=== PATIENT | male | born 2005 | race Two or more races ===

== ENCOUNTER 2024-10-06 06:19 | Inpatient (IN) | payer SELFPAY ==
[2024-10-06] VITALS (142 sets, daily range): BP systolic 97–129; BP diastolic 52–94; PULSE 64–113; RESP 0–45; TEMP 36.8; O2SAT 91–100
--- NOTE | 2024-10-06 06:36 | ECG_ITS ---
[employer] Test Date: 2024-10-06 Pat Name: James Alves Department: Room: Gender: Male Rn Transfer: : 2005 Requested By: Adan Zapata Order Number: [id number] Bam MD: ALFIE KEY Measurements Intervals [place] Rate: 131 P: 61 MN: 108 QRS: 53 QRSD: 86 T: 199 QT: 262 QTc: 387 Interpretive Statements SINUS TACHYCARDIA WITH SHORT MN INTERVAL ST DEVIATION AND MODERATE T-WAVE ABNORMALITY, CONSIDER ANTEROLATERAL ISCHEMIA [-0.1+ mV T-WAVE IN V3-V6] ST DEVIATION AND MODERATE T-WAVE ABNORMALITY, CONSIDER INFERIOR ISCHEMIA [-0.1+ mV T-WAVE IN II/aVF] No previous ECG available for comparison Electronically Signed On 10-06-2024 16:15:00 BILLET CHECKER by ALFIE KEY [id number]
--- NOTE | 2024-10-06 06:38 | ED_ITS ---
HPI - Seizure 2 General: Chief Complaint: Seizure Stated Complaint: seizure Time Seen by Provider: 10/06/24 06:20 History of Present Illness: HPI Narrative: 19-year-old male brought in by EMS repor amador status epilepticus. He has a known history of seizures in the past. He is on valproic acid. Patient arrives intubated. The head reported status in the feels initially given him a total of 25 mg of Versed uncertain from the report if this was in a single dose or titrated I suspect titrated. He is also given 100 mg of fentanyl 30 of etomidate and 150 mg of rocuronium. We do not have any old records available. On arrival here he had gotten the rocuronium about 20 to 25 minutes prior to arrival he is intubated. The ET tube is in the right mainstem and was adjusted appropriately. He is mildly tachycardic. 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 Patient has blood smeared across the abdomen reportedly from dislodged IVs he has IO attempts at the distal anterior femur bilaterally Related Data Previous Rx's Medication Instructions Recorded amoxicillin 875 mg-potassium 1 tab PO BID #14 tabs 10/07/24 clavulanate 125 mg tablet diazepam 10 mg/spray (0.1 mL) See Rx Instructions .Route 10/07/24 nasal spray (Valtoco) .COMPLEX #2 sprays divalproex 500 mg tablet,extended 1,000 mg (2 x 500 mg) PO QAM #30 10/07/24 release 24 hr tabs divalproex 500 mg tablet,extended 1,500 mg (3 x 500 mg) PO BEDTIME 10/07/24 release 24 hr #30 tabs levetiracetam 750 mg tablet 750 mg PO BID #60 tabs 10/07/24 (Keppra) Allergies Allergy/AdvReac Type Severity Reaction Status Date / Time No Known Drug Allergies Allergy Unknown Verified 10/06/24 14:54 Review of Systems 2 General: Reports: ROS unobtainable due to endotracheal tube and ROS unobtainable due to medical condition Physical Exam 2 HENMT: COMMON NORMALS: normocephalic, atraumatic and hearing grossly normal bilaterally HEAD & SCALP: normocephalic and atraumatic Resp: COMMON NORMALS: clear to auscultation bilaterally AUSCULTATION: clear to auscultation bilaterally Cardio: COMMON NORMALS: regular rhythm and No murmurs present (Cardio) R ATE: tachycardic RHYTHM: regular rhythm GI: COMMON NORMALS: Soft to palpation and No hepatosplenomegaly present A USCULTATION: Yes normoactive bowel sounds PALPATION: Yes Soft to palpation, No Tenderness to palpation present (GI), No Guarding due to palpation present (GI) and Yes No hepatosplenomegaly present Extremity: COMMON NORMALS: normal to inspection, capillary refill normal, no clubbing, cyanosis or edema, no calf tenderness and no pedal edema Skin: COMMON NORMALS: no rashes or lesions noted GENERAL SKIN EXAM: no rashes or lesions noted Course 2 Vital Signs: Vital signs: Vital Signs Temperature 97.5 F L 10/07/24 12:00 Pulse Rate 68 10/07/24 19:45 Respiratory Rate 24 H 10/07/24 19:45 Blood Pressure 145/82 10/07/24 14:00 Pulse Oximetry 95 10/07/24 19:45 Oxygen Delivery Me thod Room Air 10/07/24 19:45 Oxygen Flow Rate 5 10/06/24 08:51 Fraction of Inspir ed Oxygen 50 10/06/24 08:34 MDM - Seizure MDM Narrative Medical decision making narrative: Patient noted for times rocuronium wore off and patient began to show intentional activity. His propofol was titrated down is placed on weaning settings. Were able to successfully extubate him. Discussed with neurology as well as with hospitalist will admit to the ICU patient is still significantly postictal and having some of the residual effects from the paralytics and sedation. When first extubated he was a little bit combative. He is given his dose of Ativan. No further seizure activity. Admission orders written Lab Data 10/07/24 04:28 10/07/24 04:28 Labs: Radiology Impressions Head CT 10/06/24 06:45 IMPRESSION: Negative head CT. Cervical Spine CT 10/06/24 07:14 IMPRESSION: Normal cervical spine. Chest X-Ray 10/06/24 09:02 IMPRESSION: 1. Normal chest. Laboratory Results WBC 21.49 10^3/uL (4.5-13.0) H 10/06/24 06:35 RBC 5.17 10^6/uL (3.85-5.65) 10/06/24 06:35 Hgb 14.10 g/dL (13.2-15.6) 10/06/24 06:35 Hct 44.0 % (37-53) 10/06/24 06:35 MCV 85.1 fl (82-101) 10/06/24 06:35 MCH 27.3 pg (27-33) 10/06/24 06:35 MCHC 32.0 g/dL (30-55) 10/06/24 06:35 RDW 13.3 % (12.1-15.1) 10/06/24 06:35 Plt Count 432 10^3/cmm (157-399) H 10/06/24 06:35 MPV 10.4 fL (7.4-10.4) 10/06/24 06:35 Neut % (Auto) 79.1 % 10/06/24 06:35 Lymph % (Auto) 7.3 % 10/06/24 06:35 [place] % (Auto) 10.1 % 10/06/24 06:35 Eos % (Auto) 0.1 % 10/06/24 06:35 Baso % (Auto) 0.6 % 10/06/24 06:35 Neut # (Auto) 16.98 10^3/uL (1.8-8.0) H 10/06/24 06:35 Lymph # (Auto) 1.6 10^3/uL (1.5-6.5) 10/06/24 06:35 [place] # (Auto) 2.2 10^3/uL (0.2-0.9) H 10/06/24 06:35 Eos # (Auto) 0.0 10^3/uL (0.0-0.8) 10/06/24 06:35 Baso # (Auto) 0.1 10^3/uL (0.0-0.1) 10/06/24 06:35 Nucleated RBC % (auto) 0 % 10/06/24 06:35 Nucleated RBCs # 0.0 /100WBC 10/06/24 06:35 Specimen Type Arterial 10/06/24 08:14 Sample Site Radial, left 10/06/24 08:14 ABG pH 7.43 (7.35-7.45) 10/06/24 08:14 ABG pCO2 41.6 mmHg (35-45) 10/06/24 08:14 ABG pO2 202.0 mmHg (80.0-100.0) H 10/06/24 08:14 ABG PO2/FiO2 Ratio 202 10/06/24 08:14 ABG HCO3 27.4 mmol/L (22-26) H 10/06/24 08:14 ABG O2 Saturation > 99.1 10/06/24 08:14 ABG Base Excess 2.7 mmol/L (-2.0-2.0) H 10/06/24 08:14 Jono Test Pos 10/06/24 08:14 A-a O2 Gradient 58.7 mmHg (5-10) H 10/06/24 08:14 Hematocrit 42.4 % (42-52) 10/06/24 08:14 Hgb O2 Saturation 97.9 % (95-100) 10/06/24 08:14 Carboxyhemoglobin 0.5 %THgb (0.4-20.1) 10/06/24 08:14 Methemoglobin 1.3 % (0.4-1.5) 10/06/24 08:14 Total Hemoglobin 13.8 g/dL (14-18) L 10/06/24 08:14 Sodium 147.0 mmol/L (131-143) H 10/06/24 08:14 Potassium 3.1 mmol/L (3.5-5.0) L 10/06/24 08:14 Glucose 77.0 mg/dL (70-115) 10/06/24 08:14 Ionized Calcium 1.2 mmol/L (1.1-1.4) 10/06/24 08:14 O2 Delivery Device Vent 10/06/24 08:14 FiO2 100.0 % 10/06/24 08:14 Tidal Volume 0.50 10/06/24 08:14 PEEP 6.0 cmH20 10/06/24 08:14 Ship Washer ID [place] 10/06/24 08:14 Sodium 142 mmol/L (136-145) 10/06/24 06:35 Potassium 3.4 mmol/L (3.5-5.1) L 10/06/24 06:35 Chloride 102 mmol/L (98-107) 10/06/24 06:35 Carbon Dioxide 21 mmol/L (22-29) L 10/06/24 06:35 Anion Gap 22.4 (5-19) H 10/06/24 06:35 BUN 16 mg/dL (6-20) 10/06/24 06:35 Creatinine 1.4 mg/dL (0.7-1.2) H 10/06/24 06:35 GFR Calculation 64.6 mL/min (90-130) L 10/06/24 06:35 Glucose 85 mg/dL (65-115) 10/06/24 06:35 Calculated Osmolality 294 mOsm/kg (285-295) 10/06/24 06:35 Lactic Acid 7.0 mmol/L (0.5-2.2) H* 10/06/24 06:35 Lactic Acid (Sepsis) 2.4 mmol/L (0.5-2.2) H 10/06/24 10:15 Calcium 9.5 mg/dL (8.5-10.5) 10/06/24 06:35 Magnesium 2.1 mg/dL (1.7-2.3) 10/06/24 06:35 Total Bilirubin 0.2 mg/dL (0.15-1.2) 10/06/24 06:35 AST 142 U/L (0-40) H 10/06/24 06:35 ALT 103 U/L (0-41) H 10/06/24 06:35 Alkaline Phosphatase 76 U/L (40-130) 10/06/24 06:35 Creatine Kinase 5465 U/L (39-308) H* 10/06/24 06:35 Troponin T Baseline 156 ng/L (0-15) H* 10/06/24 06:35 Troponin T 120 Minute 179.3 ng/L (0-15) H 10/06/24 09:19 Delta Troponin T 23.3 ABS# (0-10) H* 10/06/24 09:19 Total Protein 7.9 g/dL (6.6-8.7) 10/06/24 06:35 Albumin 4.1 g/dL (3.5-5.2) 10/06/24 06:35 Globulin 3.8 g/dL (1.3-4.6) 10/06/24 06:35 TSH 2.64 uIU/mL (0.27-4.20) 10/06/24 06:35 Urine Color Yellow (Yellow) 10/06/24 06:50 Urine Appearance Cloudy (CLEAR) A 10/06/24 06:50 Urine pH 5.0 (5-7) 10/06/24 06:50 Ur Specific [place] 1.013 (1.005-1.030) 10/06/24 06:50 Urine Protein 2+ (Negative) A 10/06/24 06:50 Urine Glucose (UA) Negative (Normal) 10/06/24 06:50 Urine Ketones Trace (Negative) 10/06/24 06:50 Urine Blood 3+ (Negative) A 10/06/24 06:50 Urine Nitrate Negative (Negative) 10/06/24 06:50 Urine Bilirubin Negative (Negative) 10/06/24 06:50 Urine Urobilinogen 0.2 mg/dL (Negative) 10/06/24 06:50 Ur Leukocyte Esterase Negative (Negative) 10/06/24 06:50 Urine RBC 5-10 /hpf (0-2) H 10/06/24 06:50 Urine WBC 0-4 /hpf (0-5) H 10/06/24 06:50 Ur Squamous Epith Cells 0-4 /hpf (0-5) H 10/06/24 06:50 Amorphous Sediment 2+ /hpf 10/06/24 06:50 Urine Bacteria Trace /hpf (NONE) 10/06/24 06:50 Hyaline Casts 5-10 /lpf H 10/06/24 06:50 Coarse Granular Casts 0-4 /lpf H 10/06/24 06:50 Urine Mucus Trace /hpf 10/06/24 06:50 Salicylates < 0.3 mg/dL (3-10) L 10/06/24 06:35 Urine Opiates Screen Negative ng/mL (Negative) 10/06/24 06:50 Acetaminophen < 5.0 ug/mL (10-30) L 10/06/24 06:35 Ur Barbiturates Screen Positive ng/mL (Negative) H 10/06/24 06:50 Valproic Acid 68.7 ug/mL (50-100) 10/06/24 06:35 Ur Phencyclidine Scrn Negative ng/mL (Negative) 10/06/24 06:50 Ur Amphetamines Screen Negative ng/mL (Negative) 10/06/24 06:50 U Benzodiazepines Scrn Negative ng/mL (Negative) 10/06/24 06:50 Urine Cocaine Screen Negative ng/mL (Negative) 10/06/24 06:50 U Marijuana (THC) Screen Positive ng/mL (Negative) H 10/06/24 06:50 Ethyl Alcohol < 10 mg/dL (0-10) 10/06/24 06:35 All radiology interpretation(s) finalized by discharge Discharge Plan Discharge Patient Disposition: Admitted As Inpatient Admit Provider: Flores Warner Clinical Impression: Generalized seizure Condition: Stable Discharge Diet: Regular Discharge Activity: Resume usual activity Coding Level of Care Code ED Bottling Attendant for Medardo Giron
[2024-10-06] MEDS: levETIRAcetam 2,000 MG/200 ML PREMIX 400 MG IV (06:39)
[2024-10-06] MEDS: valproic acid inj 1,000 MG in sodium chloride 0.9% 50 ML 55 MG IV (06:43)
--- NOTE | 2024-10-06 06:45 | CT_ITS ---
WS: [id number] CT HEAD NONCONTRAST HISTORY: EPILEPTICUS TECHNIQUE: Contiguous axial imaging performed through the brain. Bone and soft tissue windows. Sagitt al and coronal reformats reviewed. All CT scans at [facility] use at least one of these dose optimization techniques: automated exposure control; mA and/or kV adjustment per patient size (includ es targeted exams where dose is matched to clinical indication); or iterative reconstruction. DLP: 2463.47 mGy.cm COMPARISON: None available. No acute intracranial hemorrhage, midline shift or mass effect. No atrophy or prior infarcts or herniation. Ventricles: Normal size with no hydrocephalus. Paranasal sinuses: Mild mucoperiosteal thickening bilaterally in the sphenoid sinuses. Mastoid air cells: Well pneumatized. Calvarium and scalp: Skull is intact with no soft tissue edema or swelling. CT/CT head wo con* [id number] IMPRESSION: Negative head CT.
--- NOTE | 2024-10-06 06:45 | XR_ITS ---
WS: [id number] PORTABLE CHEST HISTORY: DYSPNEA/COUGH COMPARISON: None available. Endotracheal tube in good position with the tip ending 2 cm above the arjun. Lung volumes are decreased. Linear atelectasis in the lingula and at the LEFT lung base. No pneumotho rax. No pleural effusion or pneumothorax. Cardiac size: Normal. Mediastinum/Aorta: Normal mediastinum. No osseous abnormality seen. Stomach is moderately distended with air. XR/XR chest 1V portable [id number] IMPRESSION: 1. Good positioning of the endotracheal tube. 2. Subsegmental areas of linear atelectasis in the lingula/LEFT lower lobe. 3. Moderate air distention of the stomach.
[2024-10-06 06:47] LABS: ABG PCO2 47.8 mmHg (35-45); ABG PH Result 7.33 (7.35-7.45); Alveolar-Arterial Oxygen Gradi 71.3 mmHg (5-10); Arterial Blood Gas Hematocrit 44.8 % (42-52); Base Excess ABG -1.4 mmol/L (-2.0-2.0); Blood Gas Allen Test Pos; Blood Gas Sample Site Radial, right; Blood Gas Sample Type Arterial; Carboxyhemoglobin 0.9 %THgb (0.4-20.1); HCO3 ABG 25.1 mmol/L (22-26); Ionized Calcium Level - ABG 1.2 mmol/L (1.1-1.4); Methemoglobin 1.3 % (0.4-1.5); Oxygen Device VENT; Oxygen Saturation ABG 97.2; PO2 FiO2 Ratio Arterial Blood 100; Potassium Level - ABG 3.4 mmol/L (3.5-5.0); Total Hemoglobin 14.6 g/dL (14-18)
[2024-10-06 06:54] LABS: Basophils # 0.1 10^3/uL (0.0-0.1); Basophils % 0.6 %; Eosinophils % 0.1 %; Lymphocytes # 1.6 10^3/uL (1.5-6.5); Lymphocytes % 7.3 %; Mean Corpuscular Hemoglobin 27.3 pg (27-33); Mean Corpuscular Volume 85.1 fl (82-101); Mean Platelet Volume 10.4 fL (7.4-10.4); Monocytes # 2.2 10^3/uL (0.2-0.9); Monocytes % 10.1 %; Neutrophils # 16.98 10^3/uL (1.8-8.0); Neutrophils % 79.1 %; Nucleated Red Blood Cells % 0 %; Platelet Count 432 10^3/cmm (157-399); Red Blood Count 5.17 10^6/uL (3.85-5.65); Red Cell Distribution Width 13.3 % (12.1-15.1); White Blood Count 21.49 10^3/uL (4.5-13.0)
[2024-10-06] MEDS: propofol 1,000 MG/100 ML INJ 2.68 MG IV (07:00)
[2024-10-06 07:14] LABS: Alanine Aminotransferase 103 U/L (0-41); Albumin Level 4.1 g/dL (3.5-5.2); Alkaline Phosphatase 76 U/L (40-130); Aspartate Amino Transferase 142 U/L (0-40); Blood Urea Nitrogen 16 mg/dL (6-20); Calcium 9.5 mg/dL (8.5-10.5); Carbon Dioxide 21 mmol/L (22-29); Chloride 102 mmol/L (98-107); Globulin 3.8 g/dL (1.3-4.6); Glomerular Filtration Rate 64.6 mL/min (90-130); Glucose 85 mg/dL (65-115); Magnesium 2.1 mg/dL (1.7-2.3); Osmolality Calculated 294 mOsm/kg (285-295); Sodium 142 mmol/L (136-145); Total Bilirubin 0.2 mg/dL (0.15-1.2); Total Protein 7.9 g/dL (6.6-8.7)
--- NOTE | 2024-10-06 07:14 | CT_ITS ---
WS: [id number] CT CERVICAL SPINE HISTORY: Seizures, clear cervical spine TECHNIQUE: Contiguous 2.0 mm axial imaging performed through the entire cervical spine. Sagittal and coronal reformats also performed. All CT scans at [facility] use at least one of these dose o ptimization techniques: automated exposure control; mA and/or kV adjustment per patient size (include s targeted exams where dose is matched to clinical indication); or iterative reconstruction. DLP: 2463.47 mGy.cm COMPARISON: None available. Normal cervical alignment. Craniocervical junction, atlantodental interval and C1-C2 alignment is nor mal. Fluid secretions in the oropharynx. C2-C3: Normal. C3-C4: Normal. C4-C5: Normal. C5-C6: Normal. C6-C7: Normal. C7-T1: Normal. Soft tissues are normal. Dependent changes at the lung apices. Nasogastric and orogastric tube are noted. CT/CT cervical spin wo con* [id number] IMPRESSION: Normal cervical spine.
[2024-10-06 07:15] LABS: Acetaminophen < 5.0 ug/mL (10-30); Alcohol Level < 10 mg/dL (0-10); Salicylate < 0.3 mg/dL (3-10)
[2024-10-06 07:15] LABS: Bilirubin Urine Negative (Negative); Blood Urine 3+ (Negative); Glucose Urine UA Negative (Normal); Ketones Urine Trace (Negative); Leukocyte Esterase Urine Negative (Negative); Nitrate Urine Negative (Negative); Protein Urine 2+ (Negative); Specific Gravity, Urine 1.013 (1.005-1.030); Urine Appearance Cloudy (CLEAR); Urine Color Yellow (Yellow); Urobilinogen Urine 0.2 mg/dL (Negative)
[2024-10-06 07:16] LABS: Anion Gap 22.4 (5-19); Potassium 3.4 mmol/L (3.5-5.1)
[2024-10-06 07:18] LABS: Valproic Acid Level 68.7 ug/mL (50-100)
[2024-10-06 07:22] LABS: Amphetamines Screen Urine Negative (Negative); Barbiturates Screen Urine Positive (Negative); Benzodiazepines Screen Urine Negative (Negative); Cocaine Screen Urine Negative (Negative); Opiate Screen Urine Negative (Negative); PCP Screen Urine Negative (Negative); THC Screen Urine Positive (Negative)
--- NOTE | 2024-10-06 07:25 | XR_ITS ---
WS: [id number] PORTABLE CHEST HISTORY: post OG placement COMPARISON: 10/06/2024 Since the prior examination orogastric tube is been placed with tip in the stomach. Proximal port is also within the stomach. Endotracheal tube ends 2 cm above the arjun. Lung volumes are decreased. No consolidations. No pleural effusion or pneumothorax. Cardiac size: Normal. Mediastinum/Aorta: Normal mediastinum. No osseous abnormality seen. XR/XR chest 1V portable [id number] IMPRESSION: 1. Orogastric tube in good position. 2. Endotracheal tube in good position. 3. No pneumothorax or pulmonary consolidation.
[2024-10-06 07:27] LABS: Creatine Phosphokinase 5465 U/L (39-308); Troponin(5th) Baseline 156 ng/L (0-15)
[2024-10-06 07:28] LABS: UA Manual Slide Review YES
[2024-10-06] MEDS: piperacillin-tazobactam 4.5 GM in sodium chloride 0.9% (plus) 50 ML IV (07:40)
[2024-10-06 07:46] LABS: Add Urine Culture? No; Add Urine Microscopic? YES; Amorphous Sediment Urine 2+ /hpf; Bacteria Urine TRACE /hpf; Coarse Granular Casts Urine 0-4 /lpf; Mucus Urine TRACE /hpf; Squamous Epithelial Cell Urine 0-4 /hpf (0-5); WBC Urine 0-4 /hpf (0-5)
[2024-10-06 08:25] LABS: ABG PCO2 41.6 mmHg (35-45); ABG PH Result 7.43 (7.35-7.45); Alveolar-Arterial Oxygen Gradi 58.7 mmHg (5-10); Arterial Blood Gas Hematocrit 42.4 % (42-52); Base Excess ABG 2.7 mmol/L (-2.0-2.0); Blood Gas Allen Test Pos; Blood Gas Operator Identificat WALCI; Blood Gas Sample Site Radial, left; Blood Gas Sample Type Arterial; Carboxyhemoglobin 0.5 %THgb (0.4-20.1); HCO3 ABG 27.4 mmol/L (22-26); HGB O2 Sat 97.9 % (95-100); Ionized Calcium Level - ABG 1.2 mmol/L (1.1-1.4); Methemoglobin 1.3 % (0.4-1.5); Oxygen Device VENT; Oxygen Saturation ABG > 99.1; PO2 FiO2 Ratio Arterial Blood 202; Potassium Level - ABG 3.1 mmol/L (3.5-5.0); Total Hemoglobin 13.8 g/dL (14-18)
--- NOTE | 2024-10-06 08:35 | ECG_ITS ---
[employer] Test Date: 2024-10-06 Pat Name: James Alves Department: Room: Gender: Male Lamination Spinner: : 2005 Requested By: Adan Zapata Order Number: [id number] Reading MD: ALFIE KEY Measurements Intervals [place] Rate: 91 P: 58 MS: 115 QRS: 56 QRSD: 98 T: 67 QT: 355 QTc: 438 Interpretive Statements SINUS RHYTHM WITH SHORT MS INTERVAL NONSPECIFIC T-WAVE ABNORMALITY Compared to ECG 10/06/2024 06:36:29 Sinus tachycardia no longer present Possible ischemia no longer present T-wave abnormality still present Electronically Signed On 10-06-2024 16:14:45 CHIEF OF STAFF by ALFIE KEY [email or web address]
[2024-10-06 08:38] LABS: Reflex Lactate Order REFLEX LACTIC ORDERD
--- NOTE | 2024-10-06 08:48 | PC.RESP ---
pt extubated by dr. altamirano with rt present, pt sxn, placed on 5L nc, spo2 96%. will wean o2 as tolerated
[2024-10-06] MEDS: LORazepam 2 mg/mL INJ 1 mL IVP (08:52)
--- NOTE | 2024-10-06 09:00 | P.HP_ITS ---
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 He was found this morning by norman having a seizure and he was brought to the hospital via EMS. He was intubated in the field. Patient is postictal at this time and we are unable to obtain any information from them. Patient's sister and kt? provides history. She states patiently patient was at [facility]. He was admitted last Sunday and discharged on . He stayed home for 3 days and presented back to the hospital with another seizure. Prior to admission at [place] there was report that patient may have missed a dosage of his medication. He had a video EEG done there as per family however medications were not adjusted. Today in ER he was extubated upon arrival. While the nasal cannula initially however now he is on room air. He is postictal. Patient also had aspiration pneumonia at [place] and he was on antibiotics and discharged home on doxycycline and cefdinir. Neurology was consulted in the ER. He was loaded with Keppra and given valproic acid. Patient does smoke weed and vapes. Denies nausea vomiting diarrhea constipation chest pain shortness of breath at this time as per family however unable to ask patient any of these questions. Kt? and sister states that parents are not involved in patient's life. Medications/Allergies Allergies Allergy/AdvReac Type Severity Reaction Status Date / Time No Known Drug Allergies Allergy Unknown Verified 10/06/24 14:54 Vitals/I&O/Wt Last Vital Signs Pulse 103 H 10/06/24 08:51 Resp 18 10/06/24 08:51 Pulse Ox 96 10/06/24 08:51 O2 Del Method Nasal Cannula 10/06/24 08:51 O2 Flow Rate 5 10/06/24 08:51 FiO2 50 10/06/24 08:34 10/05/24 10/06/24 10/06/24 22:59 06:59 14:59 Intake Total 265.003 / 265.003 Balance 265.003 / 265.003 Weight last 48 hrs Weight 89.358 kg Physical Exam 2 Narrative: General: Postictal state, does occasionally open his eyes, on room air in ICU room 1. HEENT: Normocephalic, atraumatic, EOMI, breathing comfortably on room air. Cardio: Regular rate rhythm, normal S1-S2, Respiratory: Mainly clear to auscultation bilaterally GI: Abdomen soft, nontender, nondistended, bowel sounds + Extremities: No edema bilateral lower extremities Neuro: Follows some commands, able to move all 4 extremities. Urinary Catheter Management: Elias: Cath Placed During This Visit: yes Urinary Catheter Date of Insertion: 10/06/24 Urinary Catheter Time of Insertion: 06:54 Data 10/06/24 06:35 10/06/24 06:35 Micro: Microbiology 10/06/24 06:35 Blood Culture - Preliminary Blood SPECIMEN COLLECTED A&P Assessment and plan (1) Seizure: (2) Aspiration pneumonia: (3) Epilepsy: Plan #Breakthrough seizure #History of epilepsy/grand mal seizures #Recent hospitalization #Aspiration pneumonia ? Check blood culture, sputum Gram stain culture Monitor for fever ? Placed on Zosyn 3 times daily for empiric coverage ? Patient has been extubated in ER. ? Continue IV fluids 100 cc/h. ? Lactic acid 7.0 on admission, trending down. ? Troponin 155 with a delta -70 at 6 hours. Troponins most likely elevated secondary to seizure. I do not suspect cardiac event at this time. ? EKG did not show any acute ischemic changes. ? Will check echo for wall motion abnormalities however will hold off as treating it as an NSTEMI. ? CT head negative for stroke or bleed. ? Neurology consulted. Await recommendations ? Check valproic acid level, 66. ? Check labs in a.m. ? Continue to monitor in ICU. ? Ativan 2 mg every 5 minutes as needed for seizure. If dose more than 8 mg, proceed to intubation. ? Patient does not drink request records sgf - place on keppra 750 bid IV - depakote 625 q6h IV discussed with dr. tello Full code DVT prophylaxis: Lovenox 40 daily. Attestations 2 Medical Necessity Statement*: > 2 midnight stay for seizure med adjustment Diagnoses Seizure R56.9 Aspiration pneumonia J69.0 Epilepsy G40.909
--- NOTE | 2024-10-06 09:02 | XR_ITS ---
WS: [id number] Exam: XR chest 1V portable [id number] Date/Time of Exam: 10/06/2024 9:04 AM Reason For Exam: baseline, intubated due to seizure, Comparison 10/06/2024 at 7:26 a.m. Lungs are clear and fully expanded. Normal cardiomediastinal silhou ette and regional bony elements. Endotracheal tube and GI tube have both been removed. XR/XR chest 1V portable [id number] IMPRESSION: 1. Normal chest.
[2024-10-06] MEDS: sodium chloride 0.9% 1,000 ML 100 ML IV (09:35)
[2024-10-06 09:49] LABS: Thyroid Stimulating Hormone 2.64 uIU/mL (0.27-4.20)
[2024-10-06 09:52] LABS: Troponin 5 2HR 179.3 ng/L (0-15); Troponin 5 2HR Delta 23.3 ABS# (0-10)
[2024-10-06 10:36] LABS: Lactic Acid level (Lactate) 2.4 mmol/L (0.5-2.2)
[2024-10-06 13:43] LABS: Troponin 5 6HR 85.15 ng/L (0-15)
[2024-10-06 13:44] LABS: Troponin 5 6HR Delta -70.85 ng/L (0-12)
[2024-10-06] MEDS: piperacillin-tazobactam 3.375 GM in sodium chloride 0.9% (plus) 50 ML IV ×2 (14:58→22:48)
--- NOTE | 2024-10-06 15:13 | USCV_ITS ---
James Alves Age: 19 Gender: M : 2005 Exam Date: 10/06/2024 20:51 Ordering Phys: Flores Warner MD Technologist: TOO Exam Location: [facility] [place] Indication: nstemi, s/p epileptic seizure BP: 118 / 75 HR: 67 Rhythm: Sinus Technical Quality: Adequate MEASUREMENTS (Male / Female) Normal Values 2D ECHO LV Diastolic Diameter PLAX 4.7 cm 4.2 - 5.9 / 3.9 - 5.3 cm IVS Diastolic Thickness 1.1 cm 0.6 - 1.0 / 0.6 - 0.9 cm IVS Systolic Thickness 1.5 cm LVPW Diastolic Thickness 0.9 cm 0.6 - 1.0 / 0.6 - 0.9 cm LVPW Systolic Thickness 2.0 cm LVOT Diameter 2.0 cm LV Ejection Fraction 2D Teich 67.8 % LV Ejection Fraction MOD 4C 65.4 % LV Ejection Fraction MOD 2C 62.1 % LV Ejection Fraction 2C AL 61.4 % LA Diameter 3.0 cm Aorta at Sinotubular Diameter 3.0 cm IVC Diameter 1.6 cm M-MODE LA Ao Ratio MM 1.1 AV Cusp Separation MM 2.0 cm DOPPLER AV Peak Velocity 115.0 cm/s LVOT Peak Velocity 80.0 cm/s AV Area Cont Eq vti 2.5 cm squared AV Area Cont Eq pk 2.2 cm squared MV Peak Velocity 89.0 cm/s MV Area PHT 4.7 cm squared Mitral E to A Ratio 2.0 TV Peak E Velocity 44.0 cm/s PV Peak Velocity 116.0 cm/s FINDINGS Left Ventricle Normal left ventricular size and systolic function, EF 65%.no regional wall motion abnormalities. Right Ventricle The right ventricle is normal in size and function. Right Atrium The right atrium is normal in size. Left Atrium The left atrium is normal in size. Mitral Valve Structurally normal mitral valve without significant stenosis or prolapse. There is no mitral regurgitation. Aortic Valve Structurally normal aortic valve without significant sclerosis or stenosis. There is no aortic regurgitation. Tricuspid Valve Structurally normal tricuspid valve without significant stenosis or regurgitation. Pulmonary artery systolic pressure is normal. Pulmonic Valve Structurally normal pulmonic valve without significant stenosis. There is no pulmonic regurgitation. Pericardium Normal pericardium without effusion. Aorta Normal ascending aorta dimension. IVC Normal inferior vena cava. CONCLUSIONS Normal left ventricular size and systolic function, EF 65%.no regional wall motion abnormalities. Normal cardiac chamber sizes. No significant valvular lesions. No intracardiac shunts by color-flow Doppler examination. No intracardiac masses. No pericardial effusion No similar previous studies are available for comparison Dr Saturnino Wasserman MD FAC (Electronically Signed) Final Date: 07 October 2024 07:44 S
[2024-10-06] MEDS: ondansetron 2 mg/ML SDV 2 mL 4 MG IVP (15:43)
[2024-10-06] MEDS: heparin 5,000 unit/mL INJ 1 mL IVP (15:51)
[2024-10-06] MEDS: VALPROIC ACID IV ×2 (15:53→22:01)
[2024-10-06] MEDS: heparin drip 25,000 UNIT/500 ML PREMIX 25 UNIT IV (15:53)
[2024-10-06] MEDS: levETIRAcetam 750 MG in sodium chloride 0.9% (100 ml) 100 ML 430 MG IV (15:53)
[2024-10-06] MEDS: SODIUM CHLORIDE 0.9% IV ×2 (15:53→22:01)
--- NOTE | 2024-10-06 16:54 | PM.CONSULT ---
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 According to the patient in childhood he was started on monotherapy with a medication that he could not recall the name of the medication. Patient stated that he was later started on Depakote. The patient stated that prior to 1 week ago, he was seizure-free for 3 years. The patient's fianc? stated that the patient was playing video games 1 week ago and got up to go to the bathroom and felt dizzy and experienced a generalized tonic-clonic seizure. The fianc? stated the patient was hospitalized at [facility] for several days and was on video EEG recordings. Fianc? also stated that the patient was treated with antibiotics for aspiration pneumonia. On the morning of 10/06/2024 the patient was asleep and was witnessed by the fianc? to experience a grand mal seizure. The fianc? stated that he patient's grand mal seizure awaken her from sleep. Patient was brought to the hospital via EMS. Patient was paralyzed with paralytic and was also given Versed. In the emergency room the patient was given IV Depakote and IV Keppra. Patient was transferred to the intensive care unit. Patient was intubated but is now extubated and is alert and talking. His speech is somewhat dysarthric. Patient follows commands. Noncontrast head CT 10/06/2024 revealed no acute findings. Drug allergies: None Current medications: Depakote ER 1000 mg p.o. every morning and 1500 mg p.o. 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 Patient cannot recall the name of the medication Habits: The patient smokes marijuana and vapes nicotine. The patient denied alcohol use or other drug use. Family history: Remarkable for several paternal family members with epilepsy Review of Systems General: Reports: 10 or more systems reviewed and unremarkable except in HPI and below Medications/Allergies Allergies Allergy/AdvReac Type Severity Reaction Status Date / Time No Known Drug Allergies Allergy Unknown Verified 10/06/24 14:54 Current Medications Generic Name Dose Route Start Last Admin Trade Name Freq PRN Reason Stop Dose Admin Propofol 1,000 mg in 100 mls @ 0 mls/hr 10/06/24 06:30 10/06/24 08:52 Diprivan IV 0 mcg/kg/min .Q0M KRUPA 0 mls/hr Titration Protocol Per Protocol Piperacillin Sod/Tazobactam 50 mls @ 12.5 mls/hr 10/06/24 15:30 10/06/24 14:58 Sod 3.375 gm/ Sodium Chloride IV 12.5 mls/hr Q8H KRUPA Administration Sodium Chloride 1,000 mls @ 100 mls/hr 10/06/24 09:15 10/06/24 09:35 Sodium Chloride 0.9% IV 100 mls/hr .Q10H KRUPA Administration Valproic Acid 625 mg/ Sodium 56.25 mls @ 55 mls/hr 10/06/24 16:00 10/06/24 15:53 Chloride IV 55 mls/hr Q6H KRUPA Administration Levetiracetam 750 mg/ Sodium 107.5 mls @ 430 mls/hr 10/06/24 15:45 10/06/24 16:10 Chloride IV Infused Q12H KRUPA Infusion Heparin Sodium/Sodium Chloride 25,000 unit in 500 mls @ 0 mls/hr 10/06/24 15:15 10/06/24 15:53 Heparin Drip IV 14.12 unit/kg/hr CONT KRUPA 25 mls/hr Administration Protocol Per Protocol Ondansetron HCl 4 mg 10/06/24 09:03 10/06/24 15:43 Ondansetron 2 Mg/Ml Sdv 2 Ml IVP 4 mg Q6H PRN Administration NAUSEA AND VOMITING Vitals/I&O/Wt Last Vital Signs Temp 98.3 F 10/06/24 12:00 Pulse 82 10/06/24 16:45 Resp 21 H 10/06/24 16:45 BP 118/70 10/06/24 16:45 Pulse Ox 95 10/06/24 16:45 O2 Del Method Room Air 10/06/24 13:00 O2 Flow Rate 5 10/06/24 08:51 FiO2 50 10/06/24 08:34 10/06/24 10/06/24 10/06/24 06:59 14:59 22:59 Intake Total 315.003 / 315.003 107.5 / 422.503 Balance 315.003 / 315.003 107.5 / 422.503 Weight last 48 hrs Weight 195 lb 1.745 oz Weight 197 lb Physical Exam Narrative: Blood pressure 118/70 heart rate 82 respiration 21 temperature 98.3 ?F O2 saturations 95% on room air The patient is alert and oriented x 3 speech mildly dysarthric. Head atraumatic. Neck supple. Cranial nerves II through XII intact pupils 6 mm round reactive to light and accommodation. Extraocular movements intact. There were no nystagmus. Motor testing 5/5 bilaterally. There was no drift. Deep tendon reflex revealed plantar responses bilaterally. There was no clonus. Sensory examination was intact to touch. Throat clear. Lungs clear. Heart regular rhythm and rate. Extremities were negative for cyanosis. Urinary Catheter Management: Elias: Cath Placed During This Visit: yes Urinary Catheter Date of Insertion: 10/06/24 Urinary Catheter Time of Insertion: 06:54 Data 10/06/24 06:35 10/06/24 06:35 Micro: Microbiology 10/06/24 09:19 Blood Culture - Preliminary Blood SPECIMEN COLLECTED 10/06/24 06:35 Blood Culture - Preliminary Blood SPECIMEN COLLECTED A&P Assessment and plan (1) Status epilepticus: Impression: 1. Status epilepticus 10/06/2024 requiring intubation and 1 week ago at another facility requiring intubation and video EEG monitoring 2. History of intractable epilepsy since childhood treated with Depakote monotherapy with reported stable seizures for 3 years until September 2024 requiring hospitalization 3. Marijuana use 4. Nicotine dependence 5. Elevated white count 6. Elevated CPK most likely related to prolonged seizure 10/06/2024 Plan: 1. Patient educated on potential health risk associated with drug use 2. Continue current treatment 3. Recommend changing IV Keppra to 750 mg p.o. twice daily 4. Recommend changing IV Depacon to Depakote ER 1000 mg p.o. every morning and 1500 mg p.o. nightly 5. Seizure precautions per state law to include but not limited to no driving or participating in any activities that would endanger the patient or others in the event the patient experienced a seizure while participating in those activities per state law 6. Recommend Valtoco (intranasal Valium spray) 10 mg per 0.1 mL 1 spray in 1 nostril per prolonged seizure lasting greater than 3 minutes no more than 1 spray/week per seizure episode 7. Recommend repeat CBC and CPK 08/09/2024 8. Recommend IV fluids to protect kidneys until CPK decreases 9. Patient stable from neurological standpoint for discharge planning once white count and CPK improved 10. Have patient follow-up with his neurologist (2) Intractable epilepsy: Consult Attestations Medical Necessity Statement: Patient was evaluated by neurology for status epilepticus and patient with history of intractable epilepsy Coding Level of Care Code 60146 Diagnoses Status epilepticus G40.901 Intractable epilepsy G40.919
[2024-10-06 22:51] LABS: Partial Thromboplastin Time 26.6 SECONDS (23.9-36.7)
[2024-10-07] VITALS (82 sets, daily range): BP systolic 107–152; BP diastolic 57–98; PULSE 56–90; RESP 9–38; TEMP 36.4–37.1; O2SAT 92–100; BMI 27.6
[2024-10-07] MEDS: sodium chloride 0.9% 1,000 ML 100 ML IV (01:54)
[2024-10-07] MEDS: levETIRAcetam 750 MG in sodium chloride 0.9% (100 ml) 100 ML 430 MG IV (03:46)
[2024-10-07] MEDS: SODIUM CHLORIDE 0.9% IV (03:46)
[2024-10-07] MEDS: VALPROIC ACID IV (03:46)
[2024-10-07 05:43] LABS: Basophils # 0.1 10^3/uL (0.0-0.1); Basophils % 0.5 %; Eosinophils # 0.1 10^3/uL (0.0-0.8); Eosinophils % 0.4 %; Hematocrit 36.3 % (37-53); Lymphocytes # 2.3 10^3/uL (1.5-6.5); Lymphocytes % 18.2 %; Mean Corpuscular Hemoglobin 27.6 pg (27-33); Mean Corpuscular Volume 86.4 fl (82-101); Mean Platelet Volume 10.3 fL (7.4-10.4); Monocytes # 0.9 10^3/uL (0.2-0.9); Monocytes % 7.1 %; Neutrophils # 9.12 10^3/uL (1.8-8.0); Neutrophils % 73.3 %; Nucleated Red Blood Cells % 0 %; Platelet Count 366 10^3/cmm (157-399); Red Cell Distribution Width 13.5 % (12.1-15.1); White Blood Count 12.45 10^3/uL (4.5-13.0)
[2024-10-07 06:04] LABS: Anion Gap 17.3 (5-19); Blood Urea Nitrogen 15 mg/dL (6-20); Calcium 8.7 mg/dL (8.5-10.5); Carbon Dioxide 21 mmol/L (22-29); Chloride 103 mmol/L (98-107); Creatinine Clr Calc Pharmacy 131.3333; Glomerular Filtration Rate 95.3 mL/min (90-130); Glucose 65 mg/dL (65-115); Osmolality Calculated 285 mOsm/kg (285-295); Potassium 3.3 mmol/L (3.5-5.1); Sodium 138 mmol/L (136-145)
--- NOTE | 2024-10-07 07:07 | PC.NURSE ---
Late entry 10/06/24 2000: At 1930 noted that patient had vanna blood in hernandez, denied anything pulling at hernandez, draining without difficulty and pt on heparin drip. Spoke with Dr. Lira and reported same, ordered to hold heparin drip.
[2024-10-07] MEDS: piperacillin-tazobactam 3.375 GM in sodium chloride 0.9% (plus) 50 ML IV ×2 (07:55→14:33)
[2024-10-07] MEDS: levETIRAcetam 1,000 mg/10 mL UDC 750 MG PO ×2 (09:43→17:39)
[2024-10-07] MEDS: divalproex ER 500 mg Tablet (24H) 1000 MG PO (09:43)
[2024-10-07 10:10] LABS: Creatine Phosphokinase 3255 U/L (39-308)
--- NOTE | 2024-10-07 13:02 | P.PN_ITS ---
Subjective 2 Subjective: Seen this morning. Patient requesting to have his Elias catheter out and to eat food. He did have episode of hematuria overnight. Heparin drip was stopped. Denies any chest pain, shortness of breath, echo within normal limits. Has been seizure-free since admission. Was seen by neurology overnight. Vitals/I&O/Wt Last Vital Signs Temp 97.5 F L 10/07/24 12:00 Pulse 70 10/07/24 12:00 Resp 18 10/07/24 12:00 BP 145/82 10/07/24 12:45 Pulse Ox 98 10/07/24 12:00 O2 Del Method Room Air 10/07/24 08:41 O2 Flow Rate 5 10/06/24 08:51 FiO2 50 10/06/24 08:34 10/06/24 10/07/24 10/07/24 22:59 06:59 14:59 Intake Total 1372.917 / 1687.920 213.75 / 8156.506 1173 / 1200 Output Total 1300 / 1300 1200 / 2500 300 / 300 Balance 72.917 / 387.920 -986.25 / -598.330 900 / 900 Weight last 48 hrs Weight 87.5 kg Weight 88.5 kg Weight 89.358 kg Physical Exam 2 Narrative: General: Alert oriented x 3 laying in bed with family at bedside. HEENT: Normocephalic, atraumatic, EOMI, breathing comfortably on room air. Cardio: Regular rate rhythm, normal S1-S2, Respiratory: Mainly clear to auscultation bilaterally GI: Abdomen soft, nontender, nondistended, bowel sounds + Extremities: No edema bilateral lower extremities Neuro: No focal deficits. Urinary Catheter Management: Elias: Cath Placed During This Visit: yes, but has since been removed by the nurse Reason for Continuing Indwelling Catheter: Accurate Measurement of Urinary Output in Critically Ill Patients Urinary Catheter Date of Insertion: 10/06/24 Urinary Catheter Time of Insertion: 06:54 Date Urinary Catheter Removed: 10/07/24 Time Urinary Catheter Discontinued: 10:15 Data 10/07/24 04:28 10/07/24 04:28 Micro: Microbiology 10/07/24 08:45 Gram Stain - Final Sputum - Expectorated Sputum 10/06/24 09:19 Blood Culture - Preliminary Blood NEGATIVE TO DATE 10/06/24 06:35 Blood Culture - Preliminary Blood NEGATIVE TO DATE A&P Assessment and plan (1) Seizure: (2) Aspiration pneumonia: (3) Epilepsy: Plan #Breakthrough seizure #History of epilepsy/grand mal seizures #Recent hospitalization #Aspiration pneumonia #Rhabdomyolysis ? Check blood culture, sputum Gram stain culture Monitor for fever ? Placed on Zosyn 3 times daily for empiric coverage ? Patient has been extubated in ER. ? Continue IV fluids 100 cc/h. ? Lactic acid 7.0 on admission, trending down. ? Troponin 155 with a delta -70 at 6 hours. Troponins most likely elevated secondary to seizure. I do not suspect cardiac event at this time. ? EKG did not show any acute ischemic changes. ? Will check echo for wall motion abnormalities however will hold off as treating it as an NSTEMI. ? CT head negative for stroke or bleed. ? Neurology consulted. Await recommendations ? Check valproic acid level, 66. ? Check labs in a.m. ? Continue to monitor in ICU. ? Ativan 2 mg every 5 minutes as needed for seizure. If dose more than 8 mg, proceed to intubation. ? Patient does not drink request records sgf - place on keppra 750 bid IV - depakote 625 q6h IV discussed with dr. tello Full code DVT prophylaxis: Lovenox 40 daily. 10/07/2024 -Continue regular diet ? Stop heparin drip. Troponin elevation most likely secondary to demand ischemia. Elias catheter to be removed today. -Neuroconsult appreciated CPK 3000 today. Continue IV fluids 100 cc/h ? If CPK trends down will discharge patient home Continue Keppra 750 twice daily, Depakote home dose Continue Zosyn at this time for empiric coverage ? Patient discharged home on Augmentin times another 7 days empirically. Seizure precautions This with family at bedside. Attestations 2 Medical Necessity Statement*: Twice continued hospitalization with IV fluids today and to further monitor for seizures. Diagnoses Seizure R56.9 Aspiration pneumonia J69.0 Epilepsy G40.909
[2024-10-07] MEDS: sodium chloride 0.9% 1,000 ML 150 ML IV (14:33)
[2024-10-07 19:54] LABS: Creatine Phosphokinase 3318 U/L (39-308)
--- NOTE | 2024-10-07 21:24 | PM.DCS ---
Discharge Providers Date of Admission: 10/06/24 10:20 Date of Discharge: October 08, 2024 Attending Provider at Admission: Flores Warner MD Attending Provider at Discharge: Flores Warner MD Diagnoses at Discharge Discharge Diagnosis (1) Seizure: Status: Resolved (2) Aspiration pneumonia: Status: Resolved (3) Epilepsy: Status: Acute Reason for Visit Reason for Visit: seizure Hospital Course Hospital Course LEFT AMA Physical Exam Narrative: left AMA Urinary Catheter Management: Elias: Cath Placed During This Visit: yes, but has since been removed by the nurse Reason for Continuing Indwelling Catheter: Accurate Measurement of Urinary Output in Critically Ill Patients Urinary Catheter Date of Insertion: 10/06/24 Urinary Catheter Time of Insertion: 06:54 Date Urinary Catheter Removed: 10/07/24 Time Urinary Catheter Discontinued: 10:15 Discharge Data Studies Completed and Pending Completed Studies During Hospitalization Category Date Time Status CT cervical spin wo con* 32509 Stat Cat Scan 10/06/24 07:[address] head wo con* [id number] Stat Cat Scan 10/06/24 06:45 Completed XR chest 1V portable [id number] Stat Exams 10/06/24 06:45 Completed XR chest 1V portable [id number] Stat Exams 10/06/24 07:25 Completed XR chest 1V portable [id number] Urgent Exams 10/06/24 09:02 Completed CV. echo complete* [id number] Routine Ultrasound 10/06/24 15:13 Completed Pending at discharge Category Date Time Status Blood Culture Stat Lab 10/06/24 09:19 Results Sputum Culture and Gram Stain Stat Lab 10/07/24 08:45 Results Radiology Impressions Head CT 10/06/24 06:45 IMPRESSION: Negative head CT. Cervical Spine CT 10/06/24 07:14 IMPRESSION: Normal cervical spine. Chest X-Ray 10/06/24 09:02 IMPRESSION: 1. Normal chest. Laboratory Results WBC 12.45 10^3/uL (4.5-13.0) 10/07/24 04:28 RBC 4.20 10^6/uL (3.85-5.65) 10/07/24 04:28 Hgb 11.60 g/dL (13.2-15.6) L 10/07/24 04:28 Hct 36.3 % (37-53) L 10/07/24 04:28 MCV 86.4 fl (82-101) 10/07/24 04:28 MCH 27.6 pg (27-33) 10/07/24 04:28 MCHC 32.0 g/dL (30-55) 10/07/24 04:28 RDW 13.5 % (12.1-15.1) 10/07/24 04:28 Plt Count 366 10^3/cmm (157-399) 10/07/24 04:28 MPV 10.3 fL (7.4-10.4) 10/07/24 04:28 Neut % (Auto) 73.3 % 10/07/24 04:28 Lymph % (Auto) 18.2 % 10/07/24 04:28 [place] % (Auto) 7.1 % 10/07/24 04:28 Eos % (Auto) 0.4 % 10/07/24 04:28 Baso % (Auto) 0.5 % 10/07/24 04:28 Neut # (Auto) 9.12 10^3/uL (1.8-8.0) H 10/07/24 04:28 Lymph # (Auto) 2.3 10^3/uL (1.5-6.5) 10/07/24 04:28 [place] # (Auto) 0.9 10^3/uL (0.2-0.9) 10/07/24 04:28 Eos # (Auto) 0.1 10^3/uL (0.0-0.8) 10/07/24 04:28 Baso # (Auto) 0.1 10^3/uL (0.0-0.1) 10/07/24 04:28 Nucleated RBC % (auto) 0 % 10/07/24 04:28 Nucleated RBCs # 0.0 /100WBC 10/07/24 04:28 APTT 26.6 SECONDS (23.9-36.7) 10/06/24 22:22 Specimen Type Arterial 10/06/24 08:14 Sample Site Radial, left 10/06/24 08:14 ABG pH 7.43 (7.35-7.45) 10/06/24 08:14 ABG pCO2 41.6 mmHg (35-45) 10/06/24 08:14 ABG pO2 202.0 mmHg (80.0-100.0) H 10/06/24 08:14 ABG PO2/FiO2 Ratio 202 10/06/24 08:14 ABG HCO3 27.4 mmol/L (22-26) H 10/06/24 08:14 ABG O2 Saturation > 99.1 10/06/24 08:14 ABG Base Excess 2.7 mmol/L (-2.0-2.0) H 10/06/24 08:14 Jono Test Pos 10/06/24 08:14 A-a O2 Gradient 58.7 mmHg (5-10) H 10/06/24 08:14 Hematocrit 42.4 % (42-52) 10/06/24 08:14 Hgb O2 Saturation 97.9 % (95-100) 10/06/24 08:14 Carboxyhemoglobin 0.5 %THgb (0.4-20.1) 10/06/24 08:14 Methemoglobin 1.3 % (0.4-1.5) 10/06/24 08:14 Total Hemoglobin 13.8 g/dL (14-18) L 10/06/24 08:14 Sodium 147.0 mmol/L (131-143) H 10/06/24 08:14 Potassium 3.1 mmol/L (3.5-5.0) L 10/06/24 08:14 Glucose 77.0 mg/dL (70-115) 10/06/24 08:14 Ionized Calcium 1.2 mmol/L (1.1-1.4) 10/06/24 08:14 O2 Delivery Device Vent 10/06/24 08:14 FiO2 100.0 % 10/06/24 08:14 Tidal Volume 0.50 10/06/24 08:14 PEEP 6.0 cmH20 10/06/24 08:14 Raise Miner ID Walci 10/06/24 08:14 Sodium 138 mmol/L (136-145) 10/07/24 04:28 Potassium 3.3 mmol/L (3.5-5.1) L 10/07/24 04:28 Chloride 103 mmol/L (98-107) 10/07/24 04:28 Carbon Dioxide 21 mmol/L (22-29) L 10/07/24 04:28 Anion Gap 17.3 (5-19) 10/07/24 04:28 BUN 15 mg/dL (6-20) 10/07/24 04:28 Creatinine 1.0 mg/dL (0.7-1.2) 10/07/24 04:28 GFR Calculation 95.3 mL/min (90-130) 10/07/24 04:28 Glucose 65 mg/dL (65-115) 10/07/24 04:28 Calculated Osmolality 285 mOsm/kg (285-295) 10/07/24 04:28 Lactic Acid 7.0 mmol/L (0.5-2.2) H* 10/06/24 06:35 Lactic Acid (Sepsis) 2.4 mmol/L (0.5-2.2) H 10/06/24 10:15 Calcium 8.7 mg/dL (8.5-10.5) 10/07/24 04:28 Magnesium 2.0 mg/dL (1.7-2.3) 10/07/24 04:28 Total Bilirubin 0.2 mg/dL (0.15-1.2) 10/06/24 06:35 AST 142 U/L (0-40) H 10/06/24 06:35 ALT 103 U/L (0-41) H 10/06/24 06:35 Alkaline Phosphatase 76 U/L (40-130) 10/06/24 06:35 Creatine Kinase 3318 U/L (39-308) H* 10/07/24 17:45 Troponin T Baseline 156 ng/L (0-15) H* 10/06/24 06:35 Troponin T 120 Minute 179.3 ng/L (0-15) H 10/06/24 09:19 Delta Troponin T 23.3 ABS# (0-10) H* 10/06/24 09:19 Troponin T Hi Sens 6Hr 85.15 ng/L (0-15) H 10/06/24 13:19 Troponin T Hi Sens 6Hr Delta -70.85 ng/L (0-12) L 10/06/24 13:19 Total Protein 7.9 g/dL (6.6-8.7) 10/06/24 06:35 Albumin 4.1 g/dL (3.5-5.2) 10/06/24 06:35 Globulin 3.8 g/dL (1.3-4.6) 10/06/24 06:35 TSH 2.64 uIU/mL (0.27-4.20) 10/06/24 06:35 Urine Color Yellow (Yellow) 10/06/24 06:50 Urine Appearance Cloudy (CLEAR) A 10/06/24 06:50 Urine pH 5.0 (5-7) 10/06/24 06:50 Ur Specific [place] 1.013 (1.005-1.030) 10/06/24 06:50 Urine Protein 2+ (Negative) A 10/06/24 06:50 Urine Glucose (UA) Negative (Normal) 10/06/24 06:50 Urine Ketones Trace (Negative) 10/06/24 06:50 Urine Blood 3+ (Negative) A 10/06/24 06:50 Urine Nitrate Negative (Negative) 10/06/24 06:50 Urine Bilirubin Negative (Negative) 10/06/24 06:50 Urine Urobilinogen 0.2 mg/dL (Negative) 10/06/24 06:50 Ur Leukocyte Esterase Negative (Negative) 10/06/24 06:50 Urine RBC 5-10 /hpf (0-2) H 10/06/24 06:50 Urine WBC 0-4 /hpf (0-5) H 10/06/24 06:50 Ur Squamous Epith Cells 0-4 /hpf (0-5) H 10/06/24 06:50 Amorphous Sediment 2+ /hpf 10/06/24 06:50 Urine Bacteria Trace /hpf (NONE) 10/06/24 06:50 Hyaline Casts 5-10 /lpf H 10/06/24 06:50 Coarse Granular Casts 0-4 /lpf H 10/06/24 06:50 Urine Mucus Trace /hpf 10/06/24 06:50 Salicylates < 0.3 mg/dL (3-10) L 10/06/24 06:35 Urine Opiates Screen Negative ng/mL (Negative) 10/06/24 06:50 Acetaminophen < 5.0 ug/mL (10-30) L 10/06/24 06:35 Ur Barbiturates Screen Positive ng/mL (Negative) H 10/06/24 06:50 Valproic Acid 68.7 ug/mL (50-100) 10/06/24 06:35 Ur Phencyclidine Scrn Negative ng/mL (Negative) 10/06/24 06:50 Ur Amphetamines Screen Negative ng/mL (Negative) 10/06/24 06:50 U Benzodiazepines Scrn Negative ng/mL (Negative) 10/06/24 06:50 Urine Cocaine Screen Negative ng/mL (Negative) 10/06/24 06:50 U Marijuana (THC) Screen Positive ng/mL (Negative) H 10/06/24 06:50 Ethyl Alcohol < 10 mg/dL (0-10) 10/06/24 06:35 Vitals Last Vital Signs Temp 97.5 F L 10/07/24 12:00 Pulse 68 10/07/24 19:45 Resp 24 H 10/07/24 19:45 BP 145/82 10/07/24 14:00 Pulse Ox 95 10/07/24 19:45 O2 Del Method Room Air 10/07/24 19:45 O2 Flow Rate 5 10/06/24 08:51 FiO2 50 10/06/24 08:34 Discharge Plan Discharge Patient Disposition: Left Against Medical Advice Condition: Stable Prescriptions: New divalproex 500 mg Tablet Extended Release 24 Hr 1,000 mg PO QAM Qty: 30 0RF divalproex 500 mg Tablet Extended Release 24 Hr 1,500 mg PO BEDTIME Qty: 30 0RF levetiracetam [Keppra] 750 mg tablet 750 mg PO BID Qty: 60 0RF amoxicillin-pot clavulanate 875-125 mg tablet 1 tab PO BID Qty: 14 0RF Valtoco 10 mg/spray (0.1 mL) spray,non-aerosol See Rx Instructions .ROUTE .COMPLEX Qty: 2 0RF Rx Instructions: 1 spray in 1 nostril for seizure lasting greater than 3 minutes. 1 spray/week maximum dose. Other Ambulatory Orders: EEG amplitude integrated aEEG (Routine) Timeframe: 1 Day Facility: [facility] - Location: Neurology Ordered By: Flores Blakea Referrals: Doug Turk MD [Physician] - 2 weeks Yno Mirza FNP [Nurse Practitioner] - 4-7 days Discharge Diet: Regular Discharge Activity: Resume usual activity Activity Restrictions/Additional Instructions: Must follow seizure precautions. NO driving allowed. Discharge Attestations Time Spent in Discharge Care*: less than 30 min Quality Metrics Clinical Quality Measures [ No reported AMI, CVA or VTE this stay] Coding Level of Care Code Acute Code for Chg Fwd Diagnoses Seizure R56.9 Aspiration pneumonia J69.0 Epilepsy G40.909
--- NOTE | 2024-10-07 22:54 | W.PM.EVENTAC ---
Event Note Event Note: Patient wants to leave AMA, he clearly understands that we are monitoring his CPK enzyme which has not normalized below 1000 which was our threshold to safely discharge him home to make sure he does not develop any kidney injury, patient has capacity to make decision, he is well aware that we are monitoring CPK enzyme for muscle injury after seizure, he is awake and alert, able to make decision for himself, understands the potential complications of not getting monitored, wanting to leave AMA, documentations were provided Morning doctor has sent antiepileptic medications to his respective pharmacy already in the evening.
== END 2024-10-07 20:15 | disposition left against medical advice (07) | DRG 100 ==
LOC: ER 08:22 → ICU 10:20
PROVIDERS: Admitting Provider Internal Medicine; Emergency Provider Family Medicine; Visit Provider Internal Medicine
DX: G40.411 Other generalized epilepsy and epileptic syndromes, intractable, with status epilepticus (principal); I21.A1 Myocardial infarction type 2; J69.0 Pneumonitis due to inhalation of food and vomit; F12.90 Cannabis use, unspecified, uncomplicated; F17.290 Nicotine dependence, other tobacco product, uncomplicated; R31.9 Hematuria, unspecified; Z53.29 Procedure and treatment not carried out because of patient's decision for other reasons
CPT/HCPCS: 36415; 36600; 51702; 70450; 71045; 72125; 80048; 80051; 80053; 80164; 80306; 80307; 81001; 82330; 82550; 82805; 83605; 83735; 84443; 84484; 85025; 85730; 87040; 87070; 87205; 93005; 93306; 94002; 94664; 94799; 96365; 96366; 96367; 96374; 96375; 96376; 99291; 99292; J1644; J1953; J2060; J2405; J2543; J2704; J3490; J7030

== ENCOUNTER 2024-10-10 13:34 | Emergency (ER) | payer SELFPAY ==
[2024-10-10] VITALS (9 sets, daily range): BP systolic 112–137; BP diastolic 70–92; PULSE 61–82; RESP 16–36; TEMP 37.2; O2SAT 93–98; BMI 26.6
[2024-10-10 15:33] LABS: Basophils # 0.1 10^3/uL (0.0-0.1); Basophils % 0.3 %; Eosinophils % 0.3 %; Hematocrit 40.4 % (37-53); Lymphocytes # 1.6 10^3/uL (1.5-6.5); Mean Corpuscular HGB Conc 31.4 g/dL (30-55); Mean Corpuscular Hemoglobin 27.2 pg (27-33); Mean Corpuscular Volume 86.5 fl (82-101); Mean Platelet Volume 11.5 fL (7.4-10.4); Monocytes # 0.8 10^3/uL (0.2-0.9); Monocytes % 5.4 %; Neutrophils % 83.7 %; Nucleated Red Blood Cells % 0 %; Platelet Count 352 10^3/cmm (157-399); Red Blood Count 4.67 10^6/uL (3.85-5.65); Red Cell Distribution Width 13.8 % (12.1-15.1); White Blood Count 15.64 10^3/uL (4.5-13.0)
[2024-10-10 15:54] LABS: Alanine Aminotransferase 57 U/L (0-41); Albumin Level 4.1 g/dL (3.5-5.2); Alkaline Phosphatase 54 U/L (40-130); Aspartate Amino Transferase 40 U/L (0-40); Blood Urea Nitrogen 7 mg/dL (6-20); Calcium 9.4 mg/dL (8.5-10.5); Carbon Dioxide 25 mmol/L (22-29); Chloride 100 mmol/L (98-107); Creatinine Clr Calc Pharmacy 184.6362; Globulin 3.9 g/dL (1.3-4.6); Glomerular Filtration Rate 143.8 mL/min (90-130); Glucose 84 mg/dL (65-115); Osmolality Calculated 283 mOsm/kg (285-295); Sodium 138 mmol/L (136-145); Total Bilirubin 0.3 mg/dL (0.15-1.2)
[2024-10-10 16:13] LABS: Slide Review Slide Review Perform
--- NOTE | 2024-10-10 17:07 | W.ED.SEIZURE ---
HPI - Seizure General: Chief Complaint: Seizure Stated Complaint: seizure Time Seen by Provider: 10/10/24 17:07 History of Present Illness: HPI Narrative: 19-year-old man who has a longstanding history of seizures who recently moved to the area. Who presents the emergency room after having a couple seizures today. About 5 days ago he was intubated in the field and status. He was brought to the hospital and extubated the next morning. He was admitted. He was started on Keppra in addition to his valproic acid. He had ended up leaving [facility]. He did not take his Keppra because he thought it might make his seizures worse because he had a family member who had done this. He was seen by neurology while he was here. Apparently the beginning of the month he had also been admitted with a seizure and intubated at [facility]. Today he had 2 seizures at home 1 was 2 minutes of almost 3 minutes. He declined transfer to the hospital because he was somewhat agitated afterwards. When he had woke up brought him to the emergency room. When he arrived here he had a seizure in the waiting room that lasted under 5 minutes. He was quite agitated upon awaking. Has required several milligrams of Ativan to calm him down. Related Data Previous Rx's Medication Instructions Recorded amoxicillin 875 mg-potassium 1 tab PO BID #14 tabs 10/07/24 clavulanate 125 mg tablet diazepam 10 mg/spray (0.1 mL) See Rx Instructions .Route 10/07/24 nasal spray (Valtoco) .COMPLEX #2 sprays divalproex 500 mg tablet,extended 1,000 mg (2 x 500 mg) PO QAM #30 10/07/24 release 24 hr tabs divalproex 500 mg tablet,extended 1,500 mg (3 x 500 mg) PO BEDTIME 10/07/24 release 24 hr #30 tabs levetiracetam 750 mg tablet 750 mg PO BID #60 tabs 10/07/24 (Keppra) Allergies Allergy/AdvReac Type Severity Reaction Status Date / Time No Known Drug Allergies Allergy Unknown Verified 10/10/24 14:20 Review of Systems General: Reports: ROS unobtainable due to medical condition Physical Exam Narrative: EXAM NARRATIVE: General: Patient is postictal. He is agitated at times. Skin: Warm, dry. Head: Normocephalic, atraumatic. Neck: Supple, trachea midline. Eye: Extraocular movements are intact. Ears, nose, mouth and throat: mucosa moist. Cardiovascular: Regular, Normal peripheral perfusion. Respiratory: Lungs are clear to auscultation, respirations are non-labored, breath sounds are equal, Symmetrical chest wall expansion. Gastrointestinal: Soft, Nontender, Non distended Musculoskeletal: Normal ROM, no deformity. Neurological: Patient ranges from being somnolent to agitated., No focal neurological deficit observed. Psychiatric: Unable to obtain Course Vital Signs: Vital signs: Vital Signs Temperature 99.0 F 10/10/24 14:14 Pulse Rate 61 10/10/24 21:01 Respiratory Rate 23 H 10/10/24 21:01 Blood Pressure 112/71 10/10/24 21:01 Pulse Oximetry 96 10/10/24 21:01 Oxygen Delivery Me thod Room Air 10/10/24 21:01 MDM - Seizure MDM Narrative Medical decision making narrative: Medical decision making: Differential diagnosis for this patient with a complaint of seizure like activity would include but not be limited to, and based on the above HPI, review of systems and physical exam: seizure, DT's, alcohol withdrawal, brain malignancy, pseudo-seizure, syncope. Orders placed to evaluate differential diagnosis based on the above differential, HPI and physical exam Lab Review: Laboratory results were reviewed and interpreted by myself the emergency room physician Mild leukocytosis. No anemia. No renal failure. CK is 1275. Lactate is 2.3. I reviewed the patient's medical record. Reexamination: Patient is remained fairly somnolent but he is now arousable. He is much less agitated. He has not had a seizure in over 7 hours. Consultation: I spoke to Dr. Das with neurology. She is not on-call this afternoon but excepted a telephone consultation. She encourages that the patient take Keppra. He had tolerated it without worsening symptoms while he was in the hospital. I discussed that with the family and they agree to Keppra. Consultation: I spoke with Dr. Lira with the hospitalist service for possible admission. He and the family feel that the patient would be better going to [facility] where there is neurology on-call as we do not have neurology on-call at this point. Assessment and plan: Seizure disorder Seizures Mild rhabdomyolysis -Patient being transferred to [facility] where there is neurology on-call. - Discussed findings and plan with patient. Answered any questions. - All laboratory values were reviewed and interpreted personally by myself, the ER physician - All imaging was reviewed and interpreted personally by myself, the ER physician. - Evaluation and treatment of this problem were appropriate in the emergency setting Lab Data 10/10/24 15:12 10/10/24 15:12 Labs: Laboratory Results WBC 15.64 10^3/uL (4.5-13.0) H 10/10/24 15:12 RBC 4.67 10^6/uL (3.85-5.65) 10/10/24 15:12 Hgb 12.70 g/dL (13.2-15.6) L 10/10/24 15:12 Hct 40.4 % (37-53) 10/10/24 15:12 MCV 86.5 fl (82-101) 10/10/24 15:12 MCH 27.2 pg (27-33) 10/10/24 15:12 MCHC 31.4 g/dL (30-55) 10/10/24 15:12 RDW 13.8 % (12.1-15.1) 10/10/24 15:12 Plt Count 352 10^3/cmm (157-399) 10/10/24 15:12 MPV 11.5 fL (7.4-10.4) H 10/10/24 15:12 Neut % (Auto) 83.7 % 10/10/24 15:12 Lymph % (Auto) 10.0 % 10/10/24 15:12 [place] % (Auto) 5.4 % 10/10/24 15:12 Eos % (Auto) 0.3 % 10/10/24 15:12 Baso % (Auto) 0.3 % 10/10/24 15:12 Neut # (Auto) 13.10 10^3/uL (1.8-8.0) H 10/10/24 15:12 Lymph # (Auto) 1.6 10^3/uL (1.5-6.5) 10/10/24 15:12 [place] # (Auto) 0.8 10^3/uL (0.2-0.9) 10/10/24 15:12 Eos # (Auto) 0.0 10^3/uL (0.0-0.8) 10/10/24 15:12 Baso # (Auto) 0.1 10^3/uL (0.0-0.1) 10/10/24 15:12 Nucleated RBC % (auto) 0 % 10/10/24 15:12 Nucleated RBCs # 0.0 /100WBC 10/10/24 15:12 Specimen Type Arterial 10/10/24 17:39 Sample Site Radial, left 10/10/24 17:39 ABG pH 7.42 (7.35-7.45) 10/10/24 17:39 ABG pCO2 37.5 mmHg (35-45) 10/10/24 17:39 ABG pO2 80.8 mmHg (80.0-100.0) 10/10/24 17:39 ABG PO2/FiO2 Ratio 384 10/10/24 17:39 ABG HCO3 24.1 mmol/L (22-26) 10/10/24 17:39 ABG O2 Saturation 96.5 10/10/24 17:39 ABG Base Excess -0.3 mmol/L (-2.0-2.0) 10/10/24 17:39 Jono Test Pos 10/10/24 17:39 A-a O2 Gradient 3.1 mmHg (5-10) L 10/10/24 17:39 Hematocrit 36.1 % (42-52) L 10/10/24 17:39 Hgb O2 Saturation 94.7 % (95-100) L 10/10/24 17:39 Carboxyhemoglobin 1.2 %THgb (0.4-20.1) 10/10/24 17:39 Methemoglobin 0.6 % (0.4-1.5) 10/10/24 17:39 Total Hemoglobin 11.8 g/dL (14-18) L 10/10/24 17:39 Sodium 139.0 mmol/L (131-143) 10/10/24 17:39 Potassium 3.8 mmol/L (3.5-5.0) 10/10/24 17:39 Glucose 81.0 mg/dL (70-115) 10/10/24 17:39 Ionized Calcium 1.2 mmol/L (1.1-1.4) 10/10/24 17:39 O2 Delivery Device Room air 10/10/24 17:39 FiO2 21.0 % 10/10/24 17:39 Ammunition Components Inspector ID Otoniel 10/10/24 17:39 Sodium 138 mmol/L (136-145) 10/10/24 15:12 Potassium 4.0 mmol/L (3.5-5.1) 10/10/24 15:12 Chloride 100 mmol/L (98-107) 10/10/24 15:12 Carbon Dioxide 25 mmol/L (22-29) 10/10/24 15:12 Anion Gap 17.0 (5-19) 10/10/24 15:12 BUN 7 mg/dL (6-20) 10/10/24 15:12 Creatinine 0.7 mg/dL (0.7-1.2) 10/10/24 15:12 GFR Calculation 143.8 mL/min (90-130) H 10/10/24 15:12 Glucose 84 mg/dL (65-115) 10/10/24 15:12 Calculated Osmolality 283 mOsm/kg (285-295) L 10/10/24 15:12 Lactic Acid 2.3 mmol/L (0.5-2.2) H 10/10/24 15:12 Calcium 9.4 mg/dL (8.5-10.5) 10/10/24 15:12 Total Bilirubin 0.3 mg/dL (0.15-1.2) 10/10/24 15:12 AST 40 U/L (0-40) 10/10/24 15:12 ALT 57 U/L (0-41) H 10/10/24 15:12 Alkaline Phosphatase 54 U/L (40-130) 10/10/24 15:12 Creatine Kinase 1275 U/L (39-308) H* 10/10/24 15:12 Total Protein 8.0 g/dL (6.6-8.7) 10/10/24 15:12 Albumin 4.1 g/dL (3.5-5.2) 10/10/24 15:12 Globulin 3.9 g/dL (1.3-4.6) 10/10/24 15:12 Valproic Acid 128.0 ug/mL (50-100) H 10/10/24 15:12 No radiology studies performed this visit Discharge Plan Discharge Patient Disposition: Xfer Short-Term Hosp Clinical Impression: Epilepsy, Epileptic seizure Condition: Stable Coding Level of Care Code ED Advertising Coordinator for Medardo Giron
[2024-10-10] MEDS: LORazepam 2 mg/mL INJ 1 mL IM (17:20)
[2024-10-10] MEDS: levETIRAcetam 2,000 MG/200 ML PREMIX 400 MG IV (17:30)
[2024-10-10 17:33] LABS: Lactic Sepsis W/Reflex 2.3 mmol/L (0.5-2.2)
[2024-10-10 17:38] LABS: Creatine Phosphokinase 1275 U/L (39-308)
[2024-10-10 17:51] LABS: ABG PCO2 37.5 mmHg (35-45); ABG PH Result 7.42 (7.35-7.45); Alveolar-Arterial Oxygen Gradi 3.1 mmHg (5-10); Arterial Blood Gas Hematocrit 36.1 % (42-52); Base Excess ABG -0.3 mmol/L (-2.0-2.0); Blood Gas Allen Test Pos; Blood Gas Sample Type Arterial; Carboxyhemoglobin 1.2 %THgb (0.4-20.1); HCO3 ABG 24.1 mmol/L (22-26); HGB O2 Sat 94.7 % (95-100); Ionized Calcium Level - ABG 1.2 mmol/L (1.1-1.4); Methemoglobin 0.6 % (0.4-1.5); Oxygen Saturation ABG 96.5; PO2 ABG 80.8 mmHg (80.0-100.0); Potassium Level - ABG 3.8 mmol/L (3.5-5.0); Total Hemoglobin 11.8 g/dL (14-18)
[2024-10-10 17:52] LABS: Blood Gas Operator Identificat MONRO; Blood Gas Sample Site Radial, left; Oxygen Device ROOM AIR; PO2 FiO2 Ratio Arterial Blood 384
[2024-10-10] MEDS: sodium chloride 0.9% 1,000 ML 999 ML IV (18:34)
[2024-10-10 19:07] LABS: Reflex Lactate Order REFLEX LACTIC ORDERD
--- NOTE | 2024-10-10 19:44 | PM.HP ---
Providers/Chief Complaint Chief Complaint: seizure History of Present Illness James Alves is a 19 year old male who recently left [facility] after management of rhabdomyolysis and recurrent seizure presented today for multiple seizure episodes today, patient was diagnosed with seizure related disorder at age 7 in [place]. At the time of discharge patient was given Depakote along Keppra. Patient has not taken Keppra since his discharge stating that he knew that Keppra would make his seizure worse because one of the family members had worse experience. Patient is postictal, fianc? at the bedside, I spoke with medical DPOA's Aunt Joni, I did tell her that we can manage his breakthrough seizures with Keppra and Depakote, and told me that James he was against Keppra because of strong family history of epilepsy and he has associated seizures with use of Keppra instead of epilepsy, he did not take his Keppra since his discharge from the hospital, this time he was willing to stay in the hospital, came with fianc?, third breakthrough seizure happened while waiting in the waiting room. In less than 12 hours patient has had 3 seizures. First seizure was around 4 AM and second seizure was around 5 AM it lasted only 2 to 3 minutes. EMS was called patient refused to come to the hospital at the time of that, his fianc?e convinced him to come to the hospital for further evaluation in the evening. Patient received 2 g of Keppra and Ativan 6 mg I did tell the family that we do not have neurology coverage over the weekend and he has already done EEG at [facility], I do not know the type of epilepsy he has sometimes temporal epilepsy is intractable and needs further evaluation and surgical intervention however family stating that they have not been told about the diagnosis yet Parents at the bedside stating that James smokes electronic vape, marijuana. Does not drink, Review of Systems General: Reports: ROS unobtainable due to medical condition Medications/Allergies Home Medications Medication Instructions Recorded Confirmed Last Taken Type amoxicillin 875 mg-potassium 1 tab PO BID #14 tabs 10/07/24 Unknown Rx clavulanate 125 mg tablet diazepam 10 mg/spray (0.1 mL) See Rx Instructions .Route 10/07/24 Unknown Rx nasal spray (Valtoco) .COMPLEX #2 sprays divalproex 500 mg tablet,extended 1,000 mg (2 x 500 mg) PO QAM #30 12/10/24 Unknown Rx release 24 hr tabs divalproex 500 mg tablet,extended 1,500 mg (3 x 500 mg) PO BEDTIME 10/07/24 Unknown Rx release 24 hr #30 tabs levetiracetam 750 mg tablet 750 mg PO BID #60 tabs 10/07/24 Unknown Rx (Keppra) Allergies Allergy/AdvReac Type Severity Reaction Status Date / Time No Known Drug Allergies Allergy Unknown Verified 10/10/24 14:20 Vitals/I&O/Wt Last Vital Signs Temp 99.0 F 10/10/24 14:14 Pulse 82 10/10/24 19:34 Resp 28 H 10/10/24 19:34 BP 129/81 10/10/24 19:34 Pulse Ox 98 10/10/24 19:34 O2 Del Method Room Air 10/10/24 19:34 10/10/24 10/10/24 10/10/24 06:59 14:59 22:59 Intake Total 200 / 200 Balance 200 / 200 Weight last 48 hrs Weight 84.368 kg Physical Exam Narrative: Patient is postictal Currently on room air Hemodynamically stable Euvolemic Multiple skin tattoos Currently on room air Fianc? at the bedside I do not appreciate any focal deficit Abdomen soft Pale complexion Data 10/10/24 15:12 10/10/24 15:12 A&P Assessment and plan (1) Epilepsy: (2) Generalized seizure: Plan 3 breakthrough seizures in less than 12 hours Each episode lasted less than 3 minutes Concern for status epilepticus versus temporal lobe intractable epilepsy EEG done at [facility] We do not have neurology backup I did tell the family that we can manage his seizure with Keppra and Depakote for now in case of intractable seizures he will get intubated, family requested transfer to [facility] I have conveyed the message to the ER physician. N.p.o. until patient is more awake and alert Monitor electrolytes Muscle injury improving CPK improving continue IV fluids Full code Advance diet as tolerated Threshold to intubate him for any recurrent seizure will stay low We will keep Ativan on board on as-needed basis I would use IV Keppra along p.o. Depakote, Depakote levels noted DVT prophylaxis added Attestations Medical Necessity Statement*: Anticipating discharge within 48 hours Diagnoses Epilepsy G40.909 Generalized seizure R56.9
--- NOTE | 2024-10-10 21:03 | CTR_ITS ---
PROCEDURE INFORMATION: Exam: CT Head Without Contrast Exam date and time: 10/10/2024 9:24 PM Age: 19 years old Clinical indication: Patient HX: Multiple grand mal seizures over the last several days. ; Additional info: Seizure TECHNIQUE: Imaging protocol: Computed tomography of the head without contrast. Radiation optimization: All CT scans at this facility use at least one of these dose optimization techniques: automated exposure control; mA and/or kV adjustment per patient size (includes targeted exams where dose is matched to clinical indication); or iterative reconstruction. COMPARISON: CT head wo con* [id number] 10/06/2024 7:53 AM RADIATION DOSE METRICS: Total DLP (mGy-cm): 1102.6 FINDINGS: Brain: Normal. No hemorrhage. Unremarkable white matter. No mass effect. Cerebral ventricles: No ventriculomegaly. Paranasal sinuses: Visualized sinuses are unremarkable. No fluid levels. Mastoid air cells: Visualized mastoid air cells are well aerated. Bones: Unremarkable. No acute fracture. Soft tissues: Unremarkable. CT/CT head wo con* [id number] IMPRESSION: No acute intracranial abnormality.
[2024-10-11 00:50] VITALS: BP 132/71; PULSE 62; RESP 22; O2SAT 95
--- NOTE | 2024-10-11 00:58 | PC.NURSE ---
EMS here to get pt. Report given to EMS. EMS back to desk stating the pt had a question he wanted to speak to the nurse about. This RN to room. Pt is sedated from previous meds given. Opens eyes to light tap on shoulder. Pt mumbles and asked if his fiance could take him to [facility]. I explained to pt the high risk of the situation secondary to pt previous needs for intubation with seizures. Pt closed eyes, but didn't respond. I asked fiance if she agreed. Marioance agreed with plan of care and to proceed with ALS transfer.
[2024-10-14 10:24] LABS: Levetiracetam Immunoassy <2.0 mcg/mL (6.0-46.0)
== END 2024-10-11 01:04 | disposition short-term general hospital (02) ==
PROVIDERS: Emergency Medicine; Internal Medicine; Emergency Provider Emergency Medicine
DX: G40.909 Epilepsy, unspecified, not intractable, without status epilepticus (principal)
CPT/HCPCS: 36415; 36600; 70450; 80051; 80053; 80164; 80177; 82330; 82550; 82805; 83605; 85025; 96361; 96365; 96372; 99285; J1953; J2060; J7030

== ENCOUNTER → 2025-02-25 10:54 | Outpatient (BNVA) | payer MEDICAID, SELFPAY | PROVIDERS: PCP Registered Nurse; Referring Provider Registered Nurse; Visit Provider Psychiatry & Neurology Neurology | DX: G40.311 Generalized idiopathic epilepsy and epileptic syndromes, intractable, with status epilepticus (principal); G40.419 Other generalized epilepsy and epileptic syndromes, intractable, without status epilepticus | CPT/HCPCS: 36415; 80164; 80183; 82977; 83615; 84450; 84460; 85025; 99212 ==